=== PATIENT | female | born 1970 | race Caucasian/White ===

== ENCOUNTER 2019-11-08 19:19 | Emergency (ER) | payer SELFPAY ==
[~2019-11-08] VITALS: Ht 160 cm; Wt 60.0 kg
[2019-11-08 19:24] VITALS: BP 118/76
[2019-11-08] MEDS ORDERED: LORazepam 1MG TABLET PO ONE (20:00)
[2019-11-08] MEDS ORDERED: LORazepam 1MG TABLET ONE (20:11)
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
--- NOTE | 2019-11-08 20:13 | NUR ---
CR AND UPDATED ON PT. BEHAVIOR.
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
== END 2019-11-08 20:30 | disposition home or self-care (01) ==
LOC: ED 20:00
DX: F10.229 Alcohol dependence with intoxication, unspecified (principal); Y90.0 Blood alcohol level of less than 20 mg/100 ml
CPT/HCPCS: 99283